=== PATIENT | male | born 1990 | race Caucasian/White ===

== ENCOUNTER 2020-05-27 08:43 | Emergency (ER) | payer SELFPAY ==
[2020-05-27 09:16] VITALS: BP 146/95; PULSE 73; RESP 16; TEMP 36.4; O2SAT 100
--- NOTE | 2020-05-27 09:16 | ED.GENADULT ---
HPI - General Adult General Chief complaint: Upper Respiratory Infection Stated complaint: Congestion,Cough Time Seen by Provider: 05/27/20 09:16 Source: patient Mode of arrival: ambulatory Limitations: no limitations History of Present Illness HPI narrative: 30-year-old male patient presents to the [facility] with complaints of cold symptoms that started yesterday. Patient states he has had body aches but denies any fevers. Patient states he has had a lot of congestion to the chest into the nasal as well as a runny nose. Patient states he has had a cough at times little bit of shortness of breath. Patient does admit to smoking marijuana. Patient denies taking anything for his symptoms. Patient does admit that he has had an exposure to 2 patients with positive Covid test within the last week. Related Data Allergies Allergy/AdvReac Type Severity Reaction Status Date / Time No Known Allergies Allergy Verified 05/27/20 09:02 Review of Systems Review of Systems: Narrative: CONSTITUTIONAL: Denies fever, chills, or sweats. EYES: Denies visual changes, redness, or discharge. ENT: Positive rhinorrhea, congestion, denies sore throat, or otalgia. CARDIOVASCULAR: Denies chest pain, palpitations, or edema. RESPIRATORY: Positive cough, with intermittent dyspnea. GASTROINTESTINAL: Denies abdominal pain, nausea, vomiting, or diarrhea. GENITOURINARY: Denies dysuria or hematuria. SKIN: Denies rash or itching. MUSCULOSKELETAL: Denies back pain, joint pain, or myalgia. NEUROLOGIC: Denies headache, numbness, or weakness. PSYCHIATRIC: Denies anxiety or depression. PMFSH Comments At the time of my signature I agree with nursing past medical history, surgical, social, and family history. There is no relevant family history pertinent to the presenting complaint. Exam Narrative: Exam Narrative: GENERAL: Well-appearing, well-nourished, and in no acute distress. HEAD: Normocephalic, atraumatic. EYES: PERRLA and EOMI. ENT: Nares with erythema and edema noted bilaterally, no rhinorrhea or epistaxis. Mucous membranes moist. Posterior pharynx with no erythema, tonsillectomy, exudates or lesions present. Bilateral TMs are clear no erythema or foreign bodies in the canal. NECK: Supple. No lymphadenopathy CHEST: Clear to auscultation. No respiratory distress. Patient able talk in clear complete sentences. No tripoding noted. No coughing noted during exam. HEART: Regular rate and rhythm. No murmur heard. Normal peripheral pulses. ABDOMEN: Soft, nontender, nondistended, normal active bowel sounds. EXTREMITIES: Normal range of motion. No edema. SKIN: Warm, dry, no rash. NEURO: No focal deficits. Alert and oriented x3. Course Vital Signs Vital signs: Vital Signs Temperature 36.4 C L 05/27/20 09:16 Pulse Rate 73 05/27/20 09:16 Respiratory Rate 16 05/27/20 09:16 Blood Pressure 146/95 H 05/27/20 09:16 Pulse Oximetry 100 05/27/20 09:16 Temperature 36.4 C L 05/27/20 09:16 Pulse Rate 73 05/27/20 09:16 Respiratory Rate 16 05/27/20 09:16 Blood Pressure 146/95 H 05/27/20 09:16 Pulse Oximetry 100 05/27/20 09:16 Vital signs reviewed The patient has been informed that they may have pre-hypertension or Hypertension based on a BP reading in the department. I recommend that the patient call the primary care provider listed on their discharge instructions or a physician of their choice this week to arrange follow up for further evaluation of possible pre-hypertension or Hypertension Medical Decision Making Differential Diagnosis Differential Diagnosis: Differential diagnosis: Allergic rhinitis, chronic sinusitis, tonsillitis, acute sinusitis, infectious mononucleosis, seasonal influenza, pertussis, diphtheria, meningococcal disease, viral syndrome, viral bronchitis, RSV, COVID-19 Plan of care for patient is to swab him for influenza today since he is complaining of the body aches started yesterday. Discussed with him that
[2020-05-28 19:18] LABS: SARS-CoV-2 RNA PCR Negative
== END 2020-05-27 10:06 | disposition home or self-care (01) ==
PROVIDERS: Emergency Provider Nurse Practitioner Family
DX: Z20.822 Contact with and (suspected) exposure to COVID-19 (principal)
CPT/HCPCS: 87804; 99203; C9803; G0463; U0003; U0005